=== PATIENT | male | born 1960 | race Caucasian/White ===

== ENCOUNTER → 2023-07-02 | Outpatient (CLI) | payer BC ==
[~2023-07-02] MED LIST: ASPI-556 PO; ATOR40TA71 PO; ERGO500014 PO; GABA-531 PO; GEMF600T89 PO; LEVO100T4 PO; LIRA0.6P2 SQ; LISI1TAB51 PO; PIOG30TA70 PO; SITA1TAB6 PO; TRAM50TA4 PO
[2023-07-02 16:41] LABS: ALBUMIN 3.8 g/dL (3.5-5.0); BILIRUBIN,TOTAL 0.2 mg/dL (0.2-1.0); POTASSIUM 4.4 mmol/L (3.5-5.1); TOTAL PROTEIN, SERUM 7.6 g/dL (6.0-8.3)
== END | disposition home or self-care (01) ==
LOC: LAB 15:53
PROVIDERS: ATTEND Student in an Organized Health Care Education/Training Program
DX: E78.5 Hyperlipidemia, unspecified (principal)
CPT/HCPCS: 36415; 80053

== ENCOUNTER → 2023-07-11 | Outpatient (CLI) | payer BC ==
[~2023-07-11] MED LIST changes: +IOHEXOL 350 MG/ML 100ML INFUS..BTL IV ONE; +METOPROLOL TARTRATE 1 MG/ML 5ML VIAL IV ONE
== END | disposition home or self-care (01) ==
LOC: RAH 07:44
PROVIDERS: ATTEND Student in an Organized Health Care Education/Training Program
DX: R07.9 Chest pain, unspecified (principal)
CPT/HCPCS: 75574; J3490; Q9967

== ENCOUNTER → 2023-07-17 | Outpatient (CLI) | payer BC ==
[~2023-07-17] MED LIST changes: -IOHEXOL 350 MG/ML 100ML INFUS..BTL IV ONE; -METOPROLOL TARTRATE 1 MG/ML 5ML VIAL IV ONE
== END | disposition home or self-care (01) ==
LOC: SHCH 12:15
PROVIDERS: ATTEND Student in an Organized Health Care Education/Training Program
DX: I35.8 Other nonrheumatic aortic valve disorders (principal); I11.9 Hypertensive heart disease without heart failure; E11.9 Type 2 diabetes mellitus without complications; E78.5 Hyperlipidemia, unspecified; R07.9 Chest pain, unspecified
CPT/HCPCS: 93306

== ENCOUNTER 2023-08-07 08:50 | Inpatient (IN) | payer BC ==
[2023-08-05 15:00] LABS: BASOPHILS # (AUTO) 0.07 K/uL (0.00-0.20); BASOPHILS % (AUTO) 0.5 % (0.0-5.0); EOSINOPHILS # (AUTO) 0.29 K/uL (0.00-0.70); HEMATOCRIT 43.5 % (42-54); IMMATURE GRANULOCYTE ABSOLUTE 0.05 K/uL (0-1); LYMPHOCYTES # (AUTO) 2.5 K/uL (1.0-4.8); MEAN CORPUSCULAR HGB CONC 33.6 g/dL (32.0-36.0); MEAN CORPUSCULAR VOLUME 92.4 fL (79-99); MONOCYTES % (AUTO) 6.9 % (3.0-13.0); NEUTROPHILS # (AUTO) 10.6 K/uL (1.8-7.7); NEUTROPHILS % (AUTO) 73.3 % (40.0-77.0); PLATELET COUNT (AUTO) 393 K/uL (130-400); RED BLOOD CELL COUNT(AUTO) 4.71 MIL/uL (4.50-6.20); RED CELL DISTRIBUTION WIDTH 12.4 % (11.0-15.5); WHITE BLOOD COUNT (AUTO) 14.5 K/uL (4.8-10.8)
[2023-08-05 15:13] LABS: CREATININE 0.9 mg/dL (0.5-1.3); INR <= 0.93 (0.85-1.15); POTASSIUM 4.2 mmol/L (3.5-5.1); PROTHROMBIN TIME 10.5 SEC (9.6-11.6)
[2023-08-05 15:14] LABS: PARTIAL THROMBOPLASTIN TIME 28.3 SEC (26.3-35.5)
[2023-08-05 15:22] LABS: APPEARANCE,URINE CLEAR (CLEAR); BILIRUBIN,URINE NEGATIVE (NEGATIVE); COLOR,URINE LIGHT-YELLOW (YELLOW); GLUCOSE, URINE (UA) 500 mg/dL (NEGATIVE); KETONES,URINE NEGATIVE (NEGATIVE); LEUKOCYTE ESTERASE ,URINE NEGATIVE Leu/uL (NEGATIVE); NITRATE,URINE NEGATIVE (NEGATIVE); OCCULT BLOOD,URINE NEGATIVE (NEGATIVE); PROTEIN,URINE NEGATIVE (NEGATIVE); UROBILINOGEN,URINE 0.2 mg/dL (0.2-1.0)
[2023-08-05 15:26] LABS: B-TYPE NATRIURETIC PEPTIDE 62 pg/mL (0-100)
[2023-08-05 15:27] LABS: ADD UA MICROSCOPIC YES
[2023-08-05 15:39] LABS: BACTERIA,URINE None Seen /HPF (None Seen); RBC,URINE None Seen /HPF (0-1); SQUAMOUS EPITHELIAL CELL,UR Rare /HPF (0-2); WBC,URINE 0-1 /HPF (0-1)
[2023-08-05 15:53] VITALS: BP 151/79; PULSE 83; RESP 18
[2023-08-07] VITALS (13 sets, daily range): BP systolic 102–168; BP diastolic 66–94; PULSE 67–82; RESP 14–20
[~2023-08-07] VITALS: Ht 177.8 cm; Wt 103.9 kg
[~2023-08-07 08:50] MED LIST changes: +DULA0.75 SQ; -ERGO500014 PO; -GABA-531 PO; -GEMF600T89 PO; +INSU100I24 SQ; -LIRA0.6P2 SQ; -LISI1TAB51 PO; +LISI20TA24 PO; +METF-446 PO; +METO-408 PO; -PIOG30TA70 PO; -SITA1TAB6 PO; -TRAM50TA4 PO
[2023-08-07] MEDS: 0.9%NACL 1000ML 1,000 ML IV ONE (10:35)
[2023-08-07] MEDS ORDERED: HEPARIN 10,000 UNIT/10ML (1,000 UNIT/ML) VIAL ONE ×2 (10:46→11:56)
[2023-08-07] MEDS ORDERED: LIDOCAINE HCL 400MG/20ML VIAL ONE (10:46)
[2023-08-07] MEDS ORDERED: VERAPAMIL HCL 2.5 MG/ML VIAL ONE (10:46)
[2023-08-07] MEDS ORDERED: IOHEXOL 350 MG/ML 100ML INFUS..BTL IV ONE (10:46)
[2023-08-07] MEDS ORDERED: NITROGLYCERIN 50MG VIAL ONE (10:47)
[2023-08-07] MEDS ORDERED: MIDAZOLAM HCL 1 MG/ML 2ML VIAL ONE ×2 (11:10→11:19)
[2023-08-07] MEDS ORDERED: FENTANYL CITRATE PF 50 MCG/1 ML 2ML VIAL ONE ×2 (11:10→11:38)
[2023-08-07] MEDS ORDERED: LABETALOL 20MG SYG IV ONE (11:31)
[2023-08-07] MEDS ORDERED: HYDRALAZINE 20MG/ML VIAL ONE (11:34)
[2023-08-07] MEDS ORDERED: MORPHINE 4 MG SYG ONE (11:51)
[2023-08-07] MEDS ORDERED: HYDRALAZINE 20MG/ML VIAL IV PRN (12:30)
[2023-08-07] MEDS: 0.9%NACL 1000ML 1,000 ML IV SCH (12:30)
[2023-08-07] MEDS ORDERED: DEXTROSE 50%-WATER 50 ML DISP.SYRIN IV PRN (12:30)
[2023-08-07] MEDS ORDERED: GLUCAGON 1MG KIT 1 MG ML IM PRN (12:30)
[2023-08-07 17:03] LABS: ABG BASE EXCESS -2.2 mmol/L (-2.0-3.0); ABG HCO3 20.5 mmol/L (21.0-28.0); ABG OXYGEN SATURATION 94.9 % (95.0-99.0); ABG PCO2 30 mmHg (35-48); ABG PH 7.454 (7.35-7.450); PO2, ARTERIAL BG 69.1 mmHg (83.0-108.0); VENT MODE, BG RA (ROOM AIR)
[2023-08-07] MEDS: INSULIN HUMULIN R 100 UNIT/ML 3ML SQ SCH ×2 (17:29→21:43)
[2023-08-07] MEDS: INSULIN HUMULIN R 100 UNIT/ML 3ML ONE (17:57)
[2023-08-07] MEDS: ATORVASTATIN 40 MG TABLET PO SCH (21:39)
[2023-08-07] MEDS: METOPROLOL SUCCINATE 25 MG TAB.SR.24H PO SCH (21:39)
[2023-08-07] MEDS: INSULIN GLARGINE 100 UNITS/ML 10 ML VIAL SQ SCH (21:42)
[2023-08-08] VITALS (8 sets, daily range): BP systolic 149–165; BP diastolic 69–90; PULSE 62–79; RESP 20–22; O2SAT 97–99
[2023-08-08 01:27] LABS: HEMATOCRIT 38.7 % (42-54); MEAN CORPUSCULAR HEMOGLOBIN 30.9 pg (27.0-33.0); MEAN CORPUSCULAR HGB CONC 34.4 g/dL (32.0-36.0); RED BLOOD CELL COUNT(AUTO) 4.3 MIL/uL (4.50-6.20); RED CELL DISTRIBUTION WIDTH 12.7 % (11.0-15.5); WHITE BLOOD COUNT (AUTO) 12.7 K/uL (4.8-10.8)
[2023-08-08 01:38] LABS: CREATININE 0.9 mg/dL (0.5-1.3); POTASSIUM 4.2 mmol/L (3.5-5.1)
[2023-08-08 01:40] LABS: INR <= 0.93 (0.85-1.15); PROTHROMBIN TIME 10.8 SEC (9.6-11.6)
[2023-08-08 01:42] LABS: ALBUMIN 3.5 g/dL (3.5-5.0); BILIRUBIN,TOTAL 0.3 mg/dL (0.2-1.0); PARTIAL THROMBOPLASTIN TIME 28.1 SEC (26.3-35.5); TOTAL PROTEIN, SERUM 7.1 g/dL (6.0-8.3)
[2023-08-08 01:51] LABS: HEMOGLOBIN A1C 9.3 % (4.0-6.0)
[2023-08-08] MEDS: LEVOTHYROXINE 100 MCG TABLET PO SCH (06:32)
[2023-08-08] MEDS: METFORMIN HCL 500 MG TABLET PO SCH (08:00)
[2023-08-08] MEDS: ENOXAPARIN SODIUM 40 MG/0.4 ML SYRINGE SQ SCH ×2 (08:54→08:55)
[2023-08-08] MEDS: FAMOTIDINE 20MG TAB PO SCH (08:54)
[2023-08-08] MEDS: LISINOPRIL 20 MG TABLET PO SCH (08:55)
[2023-08-08] MEDS: ASPIRIN 81 MG EC TAB PO SCH (08:55)
[2023-08-08 13:51] LABS: AMPHET/METH SCREEN,URINE NEGATIVE (NEGATIVE); BARBITURATE SCREEN, URINE NEGATIVE (NEGATIVE); BENZODIAZEPINES SCREEN,URINE POSITIVE (NEGATIVE); CANNABINOID SCREEN,URINE NEGATIVE (NEGATIVE); COCAINE SCREEN,URINE NEGATIVE (NEGATIVE); OPIATE SCREEN,URINE NEGATIVE (NEGATIVE); PHENCYCLIDINE SCREEN,URINE NEGATIVE (NEGATIVE)
[2023-08-09] VITALS (42 sets, daily range): BP systolic 89–245; BP diastolic 48–114; PULSE 61–113; RESP 10–22; TEMP 97.8–98.4; O2SAT 91–100
[2023-08-09 04:05] LABS: HEMATOCRIT 39.1 % (42-54); MEAN CORPUSCULAR HEMOGLOBIN 30.9 pg (27.0-33.0); MEAN CORPUSCULAR HGB CONC 33.2 g/dL (32.0-36.0); MEAN CORPUSCULAR VOLUME 92.9 fL (79-99); RED BLOOD CELL COUNT(AUTO) 4.21 MIL/uL (4.50-6.20); RED CELL DISTRIBUTION WIDTH 12.6 % (11.0-15.5); WHITE BLOOD COUNT (AUTO) 11.2 K/uL (4.8-10.8)
[2023-08-09 04:26] LABS: ALBUMIN 3.2 g/dL (3.5-5.0); BILIRUBIN,TOTAL 0.3 mg/dL (0.2-1.0); CREATININE 0.8 mg/dL (0.5-1.3); POTASSIUM 4.2 mmol/L (3.5-5.1); TOTAL PROTEIN, SERUM 6.7 g/dL (6.0-8.3)
[2023-08-09] MEDS: CEFAZOLIN SODIUM 2 GM VIAL IVPB SCH ×2 (07:30→22:00)
[2023-08-09] MEDS ORDERED: AMINOCAPROIC ACID 5,000MG VIAL 15,000 MG in 0.9% NACL 500ML IV.SOLN 420 ML IV PRN (08:30)
[2023-08-09] MEDS ORDERED: NOREPINEPHRIN 8MG/250ML NS 250 ML IV PRN (08:30)
[2023-08-09] MEDS ORDERED: EPINEPHRINE PF 1MG (1:1,000) 10 MG in 0.9% NACL 250ML 240 ML IV PRN ×2 (08:30→14:00)
[2023-08-09] MEDS: CEFAZOLIN SODIUM 2 GM VIAL ONE (10:33)
[2023-08-09] MEDS: 0.9%NACL 1000ML 1,000 ML IV ONE (10:33)
[2023-08-09] MEDS ORDERED: PROPOFOL 10 MG/ML 20ML VIAL IV ONE (12:01)
[2023-08-09] MEDS ORDERED: MIDAZOLAM HCL 1 MG/ML 2ML VIAL ONE ×2 (12:01→14:47)
[2023-08-09] MEDS ORDERED: ROCURONIUM BROMIDE 10MG/1ML 5ML VL ONE ×4 (12:01→15:01)
[2023-08-09] MEDS ORDERED: LIDOCAINE PF 100MG/5ML (2%) SYRINGE 5ML ONE (12:01)
[2023-08-09] MEDS ORDERED: FENTANYL CITRATE PF 50 MCG/1 ML 20ML VIAL IJ ONE (12:01)
[2023-08-09 12:40] LABS: ABG BASE EXCESS -4.2 mmol/L (-2.0-3.0); ABG HCO3 22.4 mmol/L (21.0-28.0); ABG OXYGEN SATURATION 99.5 % (95.0-99.0); ABG PCO2 47 mmHg (35-48); ABG PH 7.298 (7.35-7.450); CARBON MONOXIDE 0.2; DEVICE COMMENT 1; HHb 0.5; PO2, ARTERIAL BG 300.4 mmHg (83.0-108.0)
[2023-08-09] MEDS ORDERED: HEPARIN 10,000 UNIT/10ML (1,000 UNIT/ML) VIAL ONE ×3 (13:55→18:45)
[2023-08-09] MEDS ORDERED: 0.9%NACL 10ML VIAL IVP PRN (14:00)
[2023-08-09] MEDS ORDERED: NITROGLYCERIN 50MG/D5W 250ML 250 BOT IV SCH (14:00)
[2023-08-09] MEDS ORDERED: AMINOCAPROIC ACID 5,000MG VIAL 15,000 MG in 0.9% NACL 250ML 250 ML IV SCH (14:00)
[2023-08-09] MEDS ORDERED: GLUCAGON 1MG KIT 1 MG ML IM PRN (14:00)
[2023-08-09] MEDS ORDERED: DEXTROSE 50%-WATER 50 ML DISP.SYRIN IV PRN (14:00)
[2023-08-09] MEDS ORDERED: MAGNESIUM HYDROXIDE 30 ML/UDCUP PO PRN (14:00)
[2023-08-09] MEDS ORDERED: ACETAMINOPHEN 325 MG TAB PO PRN ×2 (14:00)
[2023-08-09] MEDS ORDERED: 0.9% NACL 500ML IV.SOLN 500 ML IV SCH (14:00)
[2023-08-09] MEDS ORDERED: ACETAMINOPHEN 650 MG SUPPOSITORY RC PRN (14:00)
[2023-08-09] MEDS ORDERED: NOREPINEPHRINE BITARTRATE 8 MG in DEXTROSE 5%-WATER 250 ML IV PRN (14:00)
[2023-08-09] MEDS ORDERED: POTASSIUM PHOS 15 mMOL+NS250ML 250 ML IV PRN (14:00)
[2023-08-09] MEDS ORDERED: SODIUM BICARB 50MEQ 50ML VIAL 150 ML ONE (14:09)
[2023-08-09 14:10] LABS: ABG BASE EXCESS -8.8 mmol/L (-2.0-3.0); ABG HCO3 18.6 mmol/L (21.0-28.0); ABG OXYGEN SATURATION 99.3 % (95.0-99.0); ABG PCO2 46 mmHg (35-48); ABG PH 7.226 (7.35-7.450); CARBON MONOXIDE 0.3; DEVICE COMMENT 2; HHb 0.7; PO2, ARTERIAL BG 311.1 mmHg (83.0-108.0)
[2023-08-09] MEDS: CEFAZOLIN SODIUM 1 GM VIAL ONE (14:17)
[2023-08-09] MEDS: PAPAVERINE HCL 30 MG/ML 2ML VIAL ONE (14:18)
[2023-08-09] MEDS ORDERED: VASOPRESSIN 20 UNITS/ML 1ML VIAL ONE (14:27)
[2023-08-09 14:39] LABS: ABG BASE EXCESS -0.9 mmol/L (-2.0-3.0); ABG HCO3 25.1 mmol/L (21.0-28.0); ABG OXYGEN SATURATION 98.8 % (95.0-99.0); ABG PCO2 47 mmHg (35-48); ABG PH 7.342 (7.35-7.450); CARBON MONOXIDE 0.3; DEVICE COMMENT 3; HHb 1.2; PO2, ARTERIAL BG 208.5 mmHg (83.0-108.0)
[2023-08-09] MEDS ORDERED: KETAMINE 50MG/ML SYRINGE 50 MG/ML DISP.SYRIN ONE (14:47)
[2023-08-09 14:58] LABS: ABG BASE EXCESS -3.7 mmol/L (-2.0-3.0); ABG HCO3 22.2 mmol/L (21.0-28.0); ABG OXYGEN SATURATION 92.6 % (95.0-99.0); ABG PCO2 44 mmHg (35-48); ABG PH 7.325 (7.35-7.450); CARBON MONOXIDE 0.3; DEVICE COMMENT 3; HHb 7.4; PO2, ARTERIAL BG 72.7 mmHg (83.0-108.0)
[2023-08-09 15:34] LABS: ABG BASE EXCESS -2.5 mmol/L (-2.0-3.0); ABG HCO3 25.3 mmol/L (21.0-28.0); ABG OXYGEN SATURATION 90.9 % (95.0-99.0); ABG PCO2 58 mmHg (35-48); ABG PH 7.258 (7.35-7.450); CARBON MONOXIDE 0.4; HHb 9.1; PO2, ARTERIAL BG 72.2 mmHg (83.0-108.0); VENT MODE, BG SIMV PS 10 (ROOM AIR)
[2023-08-09 15:53] LABS: HEMATOCRIT 35.1 % (42-54); MEAN CORPUSCULAR HEMOGLOBIN 31.3 pg (27.0-33.0); MEAN CORPUSCULAR HGB CONC 33.3 g/dL (32.0-36.0); MEAN CORPUSCULAR VOLUME 93.9 fL (79-99); PLATELET COUNT (AUTO) 339 K/uL (130-400); RED BLOOD CELL COUNT(AUTO) 3.74 MIL/uL (4.50-6.20); RED CELL DISTRIBUTION WIDTH 12.5 % (11.0-15.5)
[2023-08-09 16:02] LABS: WHITE BLOOD COUNT (AUTO) 36.8 K/uL (4.8-10.8)
[2023-08-09 16:05] LABS: INR 1.01 (0.85-1.15); PROTHROMBIN TIME 11.9 SEC (9.6-11.6)
[2023-08-09 16:07] LABS: CREATININE 0.6 mg/dL (0.5-1.3); MAGNESIUM 1.6 mg/dL (1.80-2.40); PARTIAL THROMBOPLASTIN TIME 25.6 SEC (26.3-35.5); PHOSPHORUS 5.4 mg/dL (2.5-4.9); POTASSIUM 3.6 mmol/L (3.5-5.1)
[2023-08-09 16:22] LABS: ABG BASE EXCESS -1.1 mmol/L (-2.0-3.0); ABG HCO3 24.6 mmol/L (21.0-28.0); ABG OXYGEN SATURATION 97.1 % (95.0-99.0); ABG PCO2 45 mmHg (35-48); ABG PH 7.357 (7.35-7.450); CARBON MONOXIDE 0.6; HHb 2.9; PO2, ARTERIAL BG 102.7 mmHg (83.0-108.0); VENT MODE, BG SIMV (ROOM AIR)
[2023-08-09] MEDS ORDERED: NICARDIPINE 100 MG in 0.9%NACL 100ML IV SCH (17:00)
[2023-08-09] MEDS ORDERED: IOHEXOL 350 MG/ML 100ML INFUS..BTL IV ONE ×2 (17:01→18:22)
[2023-08-09] MEDS ORDERED: LIDOCAINE HCL 400MG/20ML VIAL ONE (17:01)
[2023-08-09] MEDS ORDERED: IOHEXOL-350 50ML VIAL IV ONE (17:01)
[2023-08-09] MEDS ORDERED: IOHEXOL-350 75 ML VIAL IV ONE (17:01)
[2023-08-09] MEDS ORDERED: NITROGLYCERIN 50MG VIAL ONE (17:02)
[2023-08-09] MEDS ORDERED: ATROPINE 1MG SYG IVP ONE (17:09)
[2023-08-09] MEDS ORDERED: DOPAMINE HCL 400 MG/D5%-WATER 0 ML IV ONE (17:10)
[2023-08-09 17:15] LABS: BAND NEUTROPHILS % (MANUAL) 4 % (0-2); EOSINOPHILS % (MANUAL) 1 % (1-6); LYMPHOCYTES % (MANUAL) 6 % (22-44); MAN.DIFF COMMENT-IMPRESSION MANUAL DIFFERENTIAL; MONOCYTES % (MANUAL) 5 % (2-9); SEGMENTED NEUTROPHILS % 84 % (40-70); TOTAL CELLS COUNTED 100
[2023-08-09 17:16] LABS: PLATELET MORPHOLOGY COMMENT ADEQUATE; WBC MORPHOLOGY HYPERSEGMENT NEUT 1+
[2023-08-09] MEDS: IPRATROPIUM 0.5 MG/2.5 ML INH IH SCH (18:00)
[2023-08-09] MEDS: MORPHINE 4 MG SYG IV PRN (18:06)
[2023-08-09] MEDS: POTASSIUM CHLORIDE 20MEQ/100ML 100 ML IV PRN (18:07)
[2023-08-09] MEDS: ALBUMIN (HUMAN) 5% 250 ML IV PRN (18:08)
[2023-08-09] MEDS: ASPIRIN 81MG CHEW TAB NG ONE (18:08)
[2023-08-09] MEDS: 0.9%NACL 1000ML 1,000 ML IV SCH (18:09)
[2023-08-09] MEDS: DEXMEDETOMIDINE 400MCG/NS100ML IV ONE (18:10)
[2023-08-09] MEDS: ONDANSETRON 4MG INJ IV PRN (18:11)
[2023-08-09] MEDS: SODIUM BICARB 50MEQ 50ML VIAL IV PRN (18:11)
[2023-08-09] MEDS ORDERED: DEXMEDETOMIDINE HCL 400 MCG in 0.9%NACL 100ML 100 ML IV SCH (18:30)
[2023-08-09] MEDS ORDERED: HEPARIN 25,000 UNITS/250ML D5W 250 ML IV ONE (19:14)
[2023-08-09] MEDS ORDERED: ASPIRIN 81MG CHEW TAB ONE (19:27)
[2023-08-09] MEDS ORDERED: CLOPIDOGREL 300MG TAB ONE (19:27)
[2023-08-09] MEDS ORDERED: NITROGLYCERIN 50MG/D5W 250ML 1 BOT IV PRN (20:00)
[2023-08-09] MEDS ORDERED: ONDANSETRON 4MG INJ IVP PRN (20:00)
[2023-08-09] MEDS ORDERED: ACETAMINOPHEN WITH CODEINE 1 TAB TAB PO PRN ×2 (20:00)
[2023-08-09 20:08] LABS: ABG BASE EXCESS -1.7 mmol/L (-2.0-3.0); ABG OXYGEN SATURATION 98.9 % (95.0-99.0); ABG PCO2 39 mmHg (35-48); ABG PH 7.387 (7.35-7.450); CARBON MONOXIDE 0.3; HHb 1.1; PO2, ARTERIAL BG 319.3 mmHg (83.0-108.0); VENT MODE, BG SIMV PS10 (ROOM AIR)
[2023-08-09 20:28] LABS: BASOPHILS # (AUTO) 0.04 K/uL (0.00-0.20); BASOPHILS % (AUTO) 0.2 % (0.0-5.0); EOSINOPHILS # (AUTO) 0.01 K/uL (0.00-0.70); HEMATOCRIT 33.6 % (42-54); IMMATURE GRANULOCYTE ABSOLUTE 0.18 K/uL (0-1); LYMPHOCYTES # (AUTO) 0.7 K/uL (1.0-4.8); LYMPHOCYTES % (AUTO) 2.8 % (21.0-51.0); MEAN CORPUSCULAR VOLUME 93.9 fL (79-99); MONOCYTES # (AUTO) 1.7 K/uL (0.1-1.0); MONOCYTES % (AUTO) 6.6 % (3.0-13.0); NEUTROPHILS # (AUTO) 23.7 K/uL (1.8-7.7); NEUTROPHILS % (AUTO) 89.7 % (40.0-77.0); PLATELET COUNT (AUTO) 356 K/uL (130-400); RED BLOOD CELL COUNT(AUTO) 3.58 MIL/uL (4.50-6.20); RED CELL DISTRIBUTION WIDTH 12.5 % (11.0-15.5); WHITE BLOOD COUNT (AUTO) 26.4 K/uL (4.8-10.8)
[2023-08-09] MEDS: HEPARIN 25,000 UNITS/250ML D5W 250 ML IV SCH (21:00)
[2023-08-09] MEDS ORDERED: HEPARIN 5,000 UNIT VIAL IV PRN (21:00)
[2023-08-09 21:37] LABS: ABG BASE EXCESS 0.5 mmol/L (-2.0-3.0); ABG HCO3 24.8 mmol/L (21.0-28.0); ABG OXYGEN SATURATION 99.1 % (95.0-99.0); ABG PCO2 39 mmHg (35-48); ABG PH 7.425 (7.35-7.450); CARBON MONOXIDE 0.3; HHb 0.9; PO2, ARTERIAL BG 431.5 mmHg (83.0-108.0)
[2023-08-09] MEDS: DOCUSATE SODIUM 100 MG CAP PO ONE (21:48)
[2023-08-09] MEDS: MAGNESIUM 2GM PREMIX 50ML 50 ML IV PRN (21:52)
[2023-08-09] MEDS: FAMOTIDINE 20MG VIAL IV SCH (22:16)
[2023-08-09 22:31] LABS: ABG OXYGEN SATURATION 98.6 % (95.0-99.0); ABG PCO2 37 mmHg (35-48); ABG PH 7.435 (7.35-7.450); CARBON MONOXIDE 0.3; HHb 1.4; PO2, ARTERIAL BG 178.9 mmHg (83.0-108.0); VENT MODE, BG SIMV PS10 (ROOM AIR)
[2023-08-09 23:35] LABS: ABG BASE EXCESS 1.4 mmol/L (-2.0-3.0); ABG HCO3 25.3 mmol/L (21.0-28.0); ABG OXYGEN SATURATION 98.1 % (95.0-99.0); ABG PCO2 37 mmHg (35-48); CARBON MONOXIDE 0.3; HHb 1.9; PO2, ARTERIAL BG 147.4 mmHg (83.0-108.0)
[2023-08-09] MEDS: CALCIUM GLUC 1GM 1 GM in 0.9%NACL 50ML 50 ML IV PRN (23:49)
[2023-08-10] VITALS (93 sets, daily range): BP systolic 79–173; BP diastolic 36–79; PULSE 75–98; RESP 10–30; TEMP 98–98.9; O2SAT 91–100
[2023-08-10 00:32] LABS: ABG HCO3 25.6 mmol/L (21.0-28.0); ABG OXYGEN SATURATION 96.6 % (95.0-99.0); ABG PCO2 41 mmHg (35-48); ABG PH 7.413 (7.35-7.450); CARBON MONOXIDE 0.3; HHb 3.4; PO2, ARTERIAL BG 96.8 mmHg (83.0-108.0)
[2023-08-10 01:43] LABS: ABG BASE EXCESS 1.2 mmol/L (-2.0-3.0); ABG HCO3 25.9 mmol/L (21.0-28.0); ABG OXYGEN SATURATION 96.8 % (95.0-99.0); ABG PCO2 42 mmHg (35-48); ABG PH 7.411 (7.35-7.450); CARBON MONOXIDE 0.3; HHb 3.2; PO2, ARTERIAL BG 98.5 mmHg (83.0-108.0)
[2023-08-10] MEDS: PROPOFOL 1000 MG/100 ML 100 ML IV PRN (01:52)
[2023-08-10 02:36] LABS: HEMATOCRIT 26.9 % (42-54); MEAN CORPUSCULAR HEMOGLOBIN 31.4 pg (27.0-33.0); MEAN CORPUSCULAR HGB CONC 34.2 g/dL (32.0-36.0); MEAN CORPUSCULAR VOLUME 91.8 fL (79-99); RED BLOOD CELL COUNT(AUTO) 2.93 MIL/uL (4.50-6.20); RED CELL DISTRIBUTION WIDTH 12.7 % (11.0-15.5); WHITE BLOOD COUNT (AUTO) 19.9 K/uL (4.8-10.8)
[2023-08-10 02:40] LABS: ABG BASE EXCESS 0.8 mmol/L (-2.0-3.0); ABG HCO3 25.1 mmol/L (21.0-28.0); ABG OXYGEN SATURATION 96.8 % (95.0-99.0); ABG PCO2 39 mmHg (35-48); ABG PH 7.424 (7.35-7.450); CARBON MONOXIDE 0.3; HHb 3.2; PO2, ARTERIAL BG 99.3 mmHg (83.0-108.0)
[2023-08-10 02:47] LABS: INR 0.98 (0.85-1.15); PROTHROMBIN TIME 11.6 SEC (9.6-11.6)
[2023-08-10 02:49] LABS: PARTIAL THROMBOPLASTIN TIME 81.8 SEC (26.3-35.5)
[2023-08-10] MEDS: MORPHINE 2 MG SYG IV PRN (02:51)
[2023-08-10 02:56] LABS: CREATININE 0.6 mg/dL (0.5-1.3); PHOSPHORUS 3.5 mg/dL (2.5-4.9); POTASSIUM 4.2 mmol/L (3.5-5.1)
[2023-08-10] MEDS: AMIODARONE 150MG VIAL ONE (03:26)
[2023-08-10] MEDS ORDERED: AMIODARONE 900MG VIAL 360 MG in DEXTROSE 5%-WATER 200 ML IV SCH (03:30)
[2023-08-10 03:31] LABS: ABG BASE EXCESS 0.3 mmol/L (-2.0-3.0); ABG HCO3 24.7 mmol/L (21.0-28.0); ABG OXYGEN SATURATION 96.9 % (95.0-99.0); ABG PCO2 39 mmHg (35-48); ABG PH 7.421 (7.35-7.450); CARBON MONOXIDE 0.3; HHb 3.1; PO2, ARTERIAL BG 100.4 mmHg (83.0-108.0); VENT MODE, BG SIMV PS10 (ROOM AIR)
[2023-08-10] MEDS ORDERED: VASOPRESSIN 40 UNITS in 0.9%NACL 50ML 40 ML IV SCH (04:30)
[2023-08-10 04:41] LABS: ABG HCO3 24.4 mmol/L (21.0-28.0); ABG OXYGEN SATURATION 97.2 % (95.0-99.0); ABG PCO2 39 mmHg (35-48); ABG PH 7.417 (7.35-7.450); CARBON MONOXIDE 0.3; HHb 2.8; PO2, ARTERIAL BG 107.3 mmHg (83.0-108.0)
[2023-08-10] MEDS: VASOPRESSIN 20 UNITS/ML 1ML VIAL ONE ×3 (05:02→05:03)
[2023-08-10 05:37] LABS: ABG BASE EXCESS 0.9 mmol/L (-2.0-3.0); ABG HCO3 25.4 mmol/L (21.0-28.0); ABG PCO2 40 mmHg (35-48); CARBON MONOXIDE 0.3; PO2, ARTERIAL BG 101.4 mmHg (83.0-108.0)
[2023-08-10] MEDS: NOREPINEPHRIN 8MG/250ML NS 250 ML IV ONE (05:40)
[2023-08-10 06:46] LABS: ABG OXYGEN SATURATION 96.6 % (95.0-99.0); ABG PCO2 36 mmHg (35-48); ABG PH 7.429 (7.35-7.450); CARBON MONOXIDE 0.3; DEVICE COMMENT RN SERGIO; HHb 3.4; PO2, ARTERIAL BG 95.1 mmHg (83.0-108.0); VENT MODE, BG SIMV PS10 (ROOM AIR)
[2023-08-10] MEDS: ASPIRIN 81MG CHEW TAB PO SCH (07:44)
[2023-08-10] MEDS: PANTOPRAZOLE 40 MG TAB DR PO SCH (07:44)
[2023-08-10] MEDS: CLOPIDOGREL 75MG TAB PO SCH (07:44)
[2023-08-10] MEDS: FUROSEMIDE 20MG VIAL IV SCH (07:45)
[2023-08-10 07:59] LABS: ABG BASE EXCESS -0.3 mmol/L (-2.0-3.0); ABG HCO3 23.2 mmol/L (21.0-28.0); ABG OXYGEN SATURATION 96.6 % (95.0-99.0); ABG PCO2 34 mmHg (35-48); ABG PH 7.457 (7.35-7.450); CARBON MONOXIDE 0.3; DEVICE COMMENT RN SERGIO; HHb 3.4; PO2, ARTERIAL BG 93.5 mmHg (83.0-108.0); VENT MODE, BG SIMV PS10 (ROOM AIR)
[2023-08-10] MEDS: AMIODARONE 900MG VIAL 540 MG in DEXTROSE 5%-WATER 300 ML IV SCH (09:27)
[2023-08-10 09:43] LABS: ABG BASE EXCESS -0.4 mmol/L (-2.0-3.0); ABG HCO3 23.1 mmol/L (21.0-28.0); ABG OXYGEN SATURATION 96.2 % (95.0-99.0); ABG PCO2 33 mmHg (35-48); ABG PH 7.457 (7.35-7.450); CARBON MONOXIDE 0.3; DEVICE COMMENT RN SERGIO; HHb 3.8; PO2, ARTERIAL BG 82.8 mmHg (83.0-108.0); VENT MODE, BG CAFM (ROOM AIR)
[2023-08-10] MEDS: TRAMADOL HCL 50 MG TABLET PO PRN (09:46)
[2023-08-10 12:55] LABS: ALBUMIN 2.5 g/dL (3.5-5.0); BILIRUBIN,DIRECT 0.1 mg/dL (0.0-0.3); BILIRUBIN,TOTAL 0.2 mg/dL (0.2-1.0); TOTAL PROTEIN, SERUM 5.3 g/dL (6.0-8.3)
[2023-08-10] MEDS: INSULIN REGULAR, HUMAN 3ML 100 UNIT in 0.9%NACL 100ML 99 ML IV SCH (18:21)
[2023-08-10] MEDS: CALCIUM GLUC 1GM/10ML VIAL ONE (18:21)
[2023-08-11] VITALS (97 sets, daily range): BP systolic 78–193; BP diastolic 38–81; PULSE 66–100; RESP 7–32; TEMP 97.8–99.4; O2SAT 90–99
[2023-08-11 03:39] LABS: HEMATOCRIT 21.7 % (42-54); MEAN CORPUSCULAR HEMOGLOBIN 31.3 pg (27.0-33.0); MEAN CORPUSCULAR HGB CONC 33.2 g/dL (32.0-36.0); MEAN CORPUSCULAR VOLUME 94.3 fL (79-99); RED BLOOD CELL COUNT(AUTO) 2.3 MIL/uL (4.50-6.20); RED CELL DISTRIBUTION WIDTH 13.3 % (11.0-15.5)
[2023-08-11 03:48] LABS: CREATININE 0.9 mg/dL (0.5-1.3)
[2023-08-11] MEDS ORDERED: GLUCAGON 1MG KIT 1 MG ML IM PRN (07:00)
[2023-08-11] MEDS ORDERED: DEXTROSE 50%-WATER 50 ML DISP.SYRIN IV PRN (07:00)
[2023-08-11] MEDS: METOPROLOL TARTRATE 25 MG TAB PO SCH (07:59)
[2023-08-11] MEDS: AMIODARONE 200 MG TABLET PO SCH (07:59)
[2023-08-11] MEDS: INSULIN HUMULIN R 100 UNIT/ML 3ML SQ SCH (08:04)
[2023-08-11] MEDS: FUROSEMIDE 20MG VIAL IV SCH (11:29)
[2023-08-11 15:43] LABS: ABG BASE EXCESS -2.2 mmol/L (-2.0-3.0); ABG HCO3 20.3 mmol/L (21.0-28.0); ABG OXYGEN SATURATION 90.8 % (95.0-99.0); ABG PCO2 29 mmHg (35-48); ABG PH 7.459 (7.35-7.450); PO2, ARTERIAL BG 55.4 mmHg (83.0-108.0); VENT MODE, BG NC OXYMIZER (ROOM AIR)
[2023-08-11 17:55] LABS: BASOPHILS # (AUTO) 0.04 K/uL (0.00-0.20); BASOPHILS % (AUTO) 0.2 % (0.0-5.0); HEMATOCRIT 25.1 % (42-54); IMMATURE GRANULOCYTE ABSOLUTE 0.18 K/uL (0-1); LYMPHOCYTES # (AUTO) 1.6 K/uL (1.0-4.8); MEAN CORPUSCULAR HEMOGLOBIN 31.1 pg (27.0-33.0); MEAN CORPUSCULAR HGB CONC 33.5 g/dL (32.0-36.0); MONOCYTES # (AUTO) 2.6 K/uL (0.1-1.0); NEUTROPHILS # (AUTO) 21.6 K/uL (1.8-7.7); NEUTROPHILS % (AUTO) 83.1 % (40.0-77.0); PLATELET COUNT (AUTO) 242 K/uL (130-400); RED CELL DISTRIBUTION WIDTH 13.7 % (11.0-15.5)
[2023-08-11 18:04] LABS: INR 1.07 (0.85-1.15); PROTHROMBIN TIME 12.6 SEC (9.6-11.6)
[2023-08-11 18:05] LABS: PARTIAL THROMBOPLASTIN TIME 29.4 SEC (26.3-35.5)
[2023-08-11] MEDS: TEMAZEPAM 30 MG CAP PO PRN (20:45)
[2023-08-11] MEDS: TRAMADOL HCL 50 MG TABLET PO PRN (20:45)
[2023-08-12] VITALS (94 sets, daily range): BP systolic 66–167; BP diastolic 45–100; PULSE 63–89; RESP 10–61; TEMP 97.8–98.8; O2SAT 93–100
[2023-08-12 04:41] LABS: MEAN CORPUSCULAR HGB CONC 33.9 g/dL (32.0-36.0); MEAN CORPUSCULAR VOLUME 91.3 fL (79-99); RED BLOOD CELL COUNT(AUTO) 2.52 MIL/uL (4.50-6.20); RED CELL DISTRIBUTION WIDTH 13.8 % (11.0-15.5); WHITE BLOOD COUNT (AUTO) 23.9 K/uL (4.8-10.8)
[2023-08-12 04:53] LABS: CREATININE 1.1 mg/dL (0.5-1.3); MAGNESIUM 2.4 mg/dL (1.80-2.40); POTASSIUM 4.4 mmol/L (3.5-5.1)
[2023-08-12] MEDS: FUROSEMIDE 20 MG TABLET PO SCH (08:08)
[2023-08-12] MEDS: ENOXAPARIN SODIUM 30 MG/0.3 ML SQ SCH (08:13)
[2023-08-12] MEDS: LACTULOSE 20 GM/30 ML UDCUP PO PRN (09:08)
[2023-08-12 11:33] LABS: HEMATOCRIT 22.4 % (42-54); MEAN CORPUSCULAR HEMOGLOBIN 31.6 pg (27.0-33.0); MEAN CORPUSCULAR HGB CONC 34.8 g/dL (32.0-36.0); MEAN CORPUSCULAR VOLUME 90.7 fL (79-99); RED BLOOD CELL COUNT(AUTO) 2.47 MIL/uL (4.50-6.20); RED CELL DISTRIBUTION WIDTH 13.6 % (11.0-15.5); WHITE BLOOD COUNT (AUTO) 23.5 K/uL (4.8-10.8)
[2023-08-12] MEDS: ACETAMINOPHEN 325 MG TAB PO PRN (15:52)
[2023-08-12 18:10] LABS: HEMATOCRIT 25.5 % (42-54)
[2023-08-12] MEDS: ATORVASTATIN 40 MG TABLET PO SCH (20:32)
[2023-08-13] VITALS (33 sets, daily range): BP systolic 91–166; BP diastolic 48–98; PULSE 64–81; RESP 11–42; TEMP 98.1–98.9; O2SAT 92–98
[2023-08-13 04:34] LABS: HEMATOCRIT 25.2 % (42-54); MEAN CORPUSCULAR HEMOGLOBIN 30.9 pg (27.0-33.0); MEAN CORPUSCULAR HGB CONC 33.7 g/dL (32.0-36.0); MEAN CORPUSCULAR VOLUME 91.6 fL (79-99); NUCLEATED RED BLOOD CELLS 0.1 % (0.0-0.19); RED BLOOD CELL COUNT(AUTO) 2.75 MIL/uL (4.50-6.20); RED CELL DISTRIBUTION WIDTH 14.4 % (11.0-15.5); WHITE BLOOD COUNT (AUTO) 18.5 K/uL (4.8-10.8)
[2023-08-13 04:45] LABS: CREATININE 0.8 mg/dL (0.5-1.3); POTASSIUM 3.6 mmol/L (3.5-5.1)
[2023-08-13] MEDS: ACETYLCYSTEINE 10% 100MG/ML 4ML VIAL IH SCH (11:16)
[2023-08-13] MEDS: LACTULOSE 20 GM/30 ML UDCUP PO SCH (14:24)
[2023-08-14] VITALS (55 sets, daily range): BP systolic 103–197; BP diastolic 52–104; PULSE 60–136; RESP 12–28; TEMP 97.5–98.1; O2SAT 92–99
[2023-08-14 04:54] LABS: HEMATOCRIT 26.2 % (42-54); MEAN CORPUSCULAR HEMOGLOBIN 30.3 pg (27.0-33.0); MEAN CORPUSCULAR HGB CONC 33.6 g/dL (32.0-36.0); MEAN CORPUSCULAR VOLUME 90.3 fL (79-99); NUCLEATED RED BLOOD CELLS 0.1 % (0.0-0.19); RED BLOOD CELL COUNT(AUTO) 2.9 MIL/uL (4.50-6.20); WHITE BLOOD COUNT (AUTO) 15.5 K/uL (4.8-10.8)
[2023-08-14 05:03] LABS: CREATININE 0.7 mg/dL (0.5-1.3); POTASSIUM 3.4 mmol/L (3.5-5.1)
[2023-08-14] MEDS ORDERED: AMIODARONE 900MG VIAL 450 MG in DEXTROSE 5%-WATER 250 ML IV PRN (06:30)
[2023-08-14] MEDS ORDERED: AMIODARONE 900MG VIAL 900 MG in DEXTROSE 5%-WATER 200 ML IV PRN (06:30)
[2023-08-14] MEDS ORDERED: AMIODARONE 900MG VIAL 150 MG in DEXTROSE 5%-WATER 100 ML IV PRN (06:30)
[2023-08-14] MEDS: AMIODARONE 900MG VIAL 150 MG in DEXTROSE 5%-WATER 100 ML IV SCH (06:52)
[2023-08-14] MEDS ORDERED: AMIODARONE 900MG VIAL 360 MG in DEXTROSE 5%-WATER 200 ML IV SCH (07:00)
[2023-08-14] MEDS ORDERED: LIDOCAINE PF 100MG/5ML (2%) SYRINGE 5ML ONE (07:20)
[2023-08-14] MEDS ORDERED: PHENYLEPHRINE HCL 10 MG/ML 5ML VIAL IV ONE ×2 (07:20→07:22)
[2023-08-14] MEDS ORDERED: ATROPINE 1MG SYG IVP ONE (07:20)
[2023-08-14] MEDS ORDERED: LIDOCAINE HCL 400MG/20ML VIAL ONE (07:20)
[2023-08-14] MEDS ORDERED: HEPARIN 10,000 UNIT/10ML (1,000 UNIT/ML) VIAL ONE ×3 (07:21→09:16)
[2023-08-14] MEDS ORDERED: IOHEXOL 350 MG/ML 100ML INFUS..BTL IV ONE (07:21)
[2023-08-14] MEDS ORDERED: DOPAMINE HCL 400 MG/D5%-WATER 0 ML IV ONE (07:21)
[2023-08-14] MEDS ORDERED: NITROGLYCERIN 50MG VIAL ONE ×2 (07:22→08:06)
[2023-08-14] MEDS: METOPROLOL TARTRATE 1 MG/ML 5ML VIAL IV ONE ×2 (07:25→08:13)
[2023-08-14] MEDS: LABETALOL 20MG SYG IV ONE ×2 (07:30→08:13)
[2023-08-14] MEDS: AMIODARONE 150MG VIAL 150 MG in DEXTROSE 5%-WATER 100 ML IV ONE (07:30)
[2023-08-14] MEDS ORDERED: MIDAZOLAM HCL 1 MG/ML 2ML VIAL ONE ×3 (08:11→09:28)
[2023-08-14] MEDS ORDERED: FENTANYL CITRATE PF 50 MCG/1 ML 2ML VIAL ONE (08:11)
[2023-08-14] MEDS ORDERED: METOPROLOL TARTRATE 1 MG/ML 5ML VIAL IV ONE (08:46)
[2023-08-14] MEDS: POLYETHYLENE GLYCOL 3350 17 GM POWD.PACK PO SCH (09:00)
[2023-08-14] MEDS ORDERED: CLOPIDOGREL 300MG TAB ONE (09:41)
[2023-08-14] MEDS ORDERED: ASPIRIN 81MG CHEW TAB ONE (09:41)
[2023-08-14] MEDS ORDERED: DEXTROSE 50%-WATER 50 ML DISP.SYRIN IV PRN (10:30)
[2023-08-14] MEDS ORDERED: GLUCAGON 1MG KIT 1 MG ML IM PRN (10:30)
[2023-08-14] MEDS: AMIODARONE 900MG VIAL 540 MG in DEXTROSE 5%-WATER 300 ML IV ONE (11:14)
[2023-08-14] MEDS: 0.9%NACL 1000ML 1,000 ML IV SCH (11:16)
[2023-08-14] MEDS: FENTANYL CITRATE PF 50 MCG/1 ML 2ML VIAL IVP ONE (13:16)
[2023-08-15] VITALS (28 sets, daily range): BP systolic 109–177; BP diastolic 63–88; PULSE 62–147; RESP 13–29; TEMP 98.4; O2SAT 94–99
[2023-08-15 04:43] LABS: BASOPHILS # (AUTO) 0.04 K/uL (0.00-0.20); BASOPHILS % (AUTO) 0.2 % (0.0-5.0); EOSINOPHILS # (AUTO) 0.31 K/uL (0.00-0.70); EOSINOPHILS % (AUTO) 1.8 % (0.0-8.0); HEMATOCRIT 25.4 % (42-54); IMMATURE GRANULOCYTE ABSOLUTE 0.16 K/uL (0-1); LYMPHOCYTES # (AUTO) 1.5 K/uL (1.0-4.8); LYMPHOCYTES % (AUTO) 8.9 % (21.0-51.0); MEAN CORPUSCULAR HEMOGLOBIN 30.6 pg (27.0-33.0); MEAN CORPUSCULAR HGB CONC 33.5 g/dL (32.0-36.0); MEAN CORPUSCULAR VOLUME 91.4 fL (79-99); MONOCYTES # (AUTO) 1.9 K/uL (0.1-1.0); MONOCYTES % (AUTO) 11.2 % (3.0-13.0); NEUTROPHILS # (AUTO) 12.9 K/uL (1.8-7.7); NEUTROPHILS % (AUTO) 76.9 % (40.0-77.0); PLATELET COUNT (AUTO) 311 K/uL (130-400); RED BLOOD CELL COUNT(AUTO) 2.78 MIL/uL (4.50-6.20); RED CELL DISTRIBUTION WIDTH 13.9 % (11.0-15.5); WHITE BLOOD COUNT (AUTO) 16.8 K/uL (4.8-10.8)
[2023-08-15 05:08] LABS: CREATININE 0.5 mg/dL (0.5-1.3); POTASSIUM 3.2 mmol/L (3.5-5.1)
[2023-08-15] MEDS: POTASSIUM CHLORIDE 10% ELIXIR 20 MEQ/15 ML UDCUP PO PRN (06:17)
[2023-08-15 11:24] LABS: % IRON SATURATION 11.3 % (30-44)
[2023-08-15] MEDS: METOCLOPRAMIDE 10 MG/2 ML VIAL IVP SCH (11:58)
[2023-08-15] MEDS: BISACODYL 10 MG SUPP.RECT RC PRN (11:58)
[2023-08-15] MEDS: ALPRAZOLAM 0.25 MG TABLET PO PRN (12:12)
[2023-08-15] MEDS: IRON SUCROSE COMPLEX 100 MG/5 ML VIAL IV ONE (14:12)
[2023-08-15] MEDS: TRAMADOL HCL 50 MG TABLET PO PRN (14:49)
[2023-08-15] MEDS ORDERED: TRAMADOL HCL 50 MG TABLET PO PRN (15:00)
[2023-08-15] MEDS: LIDOCAINE 4% ADH..PATCH TP SCH (17:22)
[2023-08-15] MEDS: LOSARTAN 25 MG TABLET PO SCH (17:22)
[2023-08-15] MEDS: METHOCARBAMOL 500 MG TABLET PO SCH (17:52)
[2023-08-15 19:17] LABS: INR 1.04 (0.85-1.15); PROTHROMBIN TIME 12.2 SEC (9.6-11.6)
[2023-08-15 19:18] LABS: PARTIAL THROMBOPLASTIN TIME 25.6 SEC (26.3-35.5)
[2023-08-16] VITALS (13 sets, daily range): BP systolic 90–153; BP diastolic 53–75; PULSE 65–137; RESP 18–22; O2SAT 96
[2023-08-16] MEDS: METOPROLOL TARTRATE 1 MG/ML 5ML VIAL IV PRN (02:41)
[2023-08-16] MEDS: METOPROLOL TARTRATE 25 MG TAB PO SCH (10:45)
[2023-08-16] MEDS ORDERED: POTASSIUM CHLORIDE 20MEQ/100ML 100 ML IV PRN (12:00)
[2023-08-16] MEDS ORDERED: POTASSIUM CHLORIDE 10% ELIXIR 20 MEQ/15 ML UDCUP PO PRN (12:00)
[2023-08-16] MEDS: KCL 20 MEQ ERTAB PO PRN (13:00)
[2023-08-16] MEDS: ALPRAZOLAM 0.25 MG TABLET PO PRN (21:16)
[2023-08-17] VITALS (9 sets, daily range): BP systolic 118–144; BP diastolic 66–75; PULSE 66–86; RESP 16–24; O2SAT 96–97
[2023-08-17 03:37] LABS: BASOPHILS # (AUTO) 0.02 K/uL (0.00-0.20); BASOPHILS % (AUTO) 0.1 % (0.0-5.0); EOSINOPHILS % (AUTO) 2.4 % (0.0-8.0); HEMATOCRIT 25.7 % (42-54); IMMATURE GRANULOCYTE ABSOLUTE 0.21 K/uL (0-1); LYMPHOCYTES # (AUTO) 1.7 K/uL (1.0-4.8); LYMPHOCYTES % (AUTO) 10.2 % (21.0-51.0); MEAN CORPUSCULAR HEMOGLOBIN 30.3 pg (27.0-33.0); MEAN CORPUSCULAR HGB CONC 32.3 g/dL (32.0-36.0); MEAN CORPUSCULAR VOLUME 93.8 fL (79-99); MONOCYTES # (AUTO) 1.5 K/uL (0.1-1.0); MONOCYTES % (AUTO) 8.8 % (3.0-13.0); NEUTROPHILS # (AUTO) 13.1 K/uL (1.8-7.7); NEUTROPHILS % (AUTO) 77.3 % (40.0-77.0); NUCLEATED RED BLOOD CELLS 0.1 % (0.0-0.19); PLATELET COUNT (AUTO) 403 K/uL (130-400); RED BLOOD CELL COUNT(AUTO) 2.74 MIL/uL (4.50-6.20); RED CELL DISTRIBUTION WIDTH 14.1 % (11.0-15.5)
[2023-08-17 04:17] LABS: ALBUMIN 2.1 g/dL (3.5-5.0); BILIRUBIN,TOTAL 0.8 mg/dL (0.2-1.0); CREATININE 0.7 mg/dL (0.5-1.3); MAGNESIUM 2.1 mg/dL (1.80-2.40); POTASSIUM 4.1 mmol/L (3.5-5.1); THYROID STIMULATING HORMONE 7.65 uIU/mL (0.36-3.74); TOTAL PROTEIN, SERUM 6.1 g/dL (6.0-8.3)
[2023-08-17] MEDS ORDERED: IPRATROPIUM 0.5 MG/2.5 ML INH IH PRN (11:30)
[2023-08-18] MEDS ORDERED: SERTRALINE HCL 50 MG TABLET PO SCH (09:00)
== END 2023-08-17 18:00 | DRG 231 ==
LOC: DAH 08:50 → DAHIP 08:51 → DAH 08:51 → 2DH 16:58 → 2CV 08-09 11:33 → 2CH 08-09 14:04 → 2DH 08-15 18:35
PROVIDERS: ADMIT Internal Medicine Pulmonary Disease; ATTEND Internal Medicine Pulmonary Disease
PROC: 4A023N7 Measurement of Cardiac Sampling and Pressure, Left Heart, Percutaneous Approach (ICD-10-PCS; principal; 2023-08-07)
PROC: B2111ZZ Fluoroscopy of Multiple Coronary Arteries using Low Osmolar Contrast (ICD-10-PCS; 2023-08-07)
PROC: B241ZZ3 Ultrasonography of Multiple Coronary Arteries, Intravascular (ICD-10-PCS; 2023-08-07)
PROC: 02100Z9 Bypass Coronary Artery, One Artery from Left Internal Mammary, Open Approach (ICD-10-PCS; 2023-08-09)
PROC: 4A023N7 Measurement of Cardiac Sampling and Pressure, Left Heart, Percutaneous Approach (ICD-10-PCS; 2023-08-09)
PROC: B2111ZZ Fluoroscopy of Multiple Coronary Arteries using Low Osmolar Contrast (ICD-10-PCS; 2023-08-09)
PROC: 0BH17EZ Insertion of Endotracheal Airway into Trachea, Via Natural or Artificial Opening (ICD-10-PCS; 2023-08-09)
PROC: 5A1935Z Respiratory Ventilation, Less than 24 Consecutive Hours (ICD-10-PCS; 2023-08-09)
PROC: 021009W Bypass Coronary Artery, One Artery from Aorta with Autologous Venous Tissue, Open Approach (ICD-10-PCS; 2023-08-09 12:02)
PROC: 027035Z Dilation of Coronary Artery, One Artery with Two Drug-eluting Intraluminal Devices, Percutaneous Approach (ICD-10-PCS; 2023-08-09 12:02)
PROC: 30233N1 Transfusion of Nonautologous Red Blood Cells into Peripheral Vein, Percutaneous Approach (ICD-10-PCS; 2023-08-11)
PROC: 5A09357 Assistance with Respiratory Ventilation, Less than 24 Consecutive Hours, Continuous Positive Airway Pressure (ICD-10-PCS; 2023-08-12)
PROC: 5A09357 Assistance with Respiratory Ventilation, Less than 24 Consecutive Hours, Continuous Positive Airway Pressure (ICD-10-PCS; 2023-08-13)
PROC: 027035Z Dilation of Coronary Artery, One Artery with Two Drug-eluting Intraluminal Devices, Percutaneous Approach (ICD-10-PCS; 2023-08-14)
PROC: 4A023N7 Measurement of Cardiac Sampling and Pressure, Left Heart, Percutaneous Approach (ICD-10-PCS; 2023-08-14)
PROC: B2111ZZ Fluoroscopy of Multiple Coronary Arteries using Low Osmolar Contrast (ICD-10-PCS; 2023-08-14)
PROC: B2121ZZ Fluoroscopy of Single Coronary Artery Bypass Graft using Low Osmolar Contrast (ICD-10-PCS; 2023-08-14)
PROC: B2181ZZ Fluoroscopy of Left Internal Mammary Bypass Graft using Low Osmolar Contrast (ICD-10-PCS; 2023-08-14)
PROC: B41F1ZZ Fluoroscopy of Right Lower Extremity Arteries using Low Osmolar Contrast (ICD-10-PCS; 2023-08-14)
PROC: B44FZZZ Ultrasonography of Right Lower Extremity Arteries (ICD-10-PCS; 2023-08-14)
PROC: 05HY33Z Insertion of Infusion Device into Upper Vein, Percutaneous Approach (ICD-10-PCS; 2023-08-15)
DX: I21.4 Non-ST elevation (NSTEMI) myocardial infarction (principal); J96.01 Acute respiratory failure with hypoxia; D62 Acute posthemorrhagic anemia; D68.59 Other primary thrombophilia; E87.20 Acidosis, unspecified; I31.39 Other pericardial effusion (noninflammatory); I47.20 Ventricular tachycardia, unspecified; I25.10 Atherosclerotic heart disease of native coronary artery without angina pectoris; E11.65 Type 2 diabetes mellitus with hyperglycemia; D72.829 Elevated white blood cell count, unspecified; E66.9 Obesity, unspecified; I50.9 Heart failure, unspecified; J95.1 Acute pulmonary insufficiency following thoracic surgery; I11.0 Hypertensive heart disease with heart failure; I65.22 Occlusion and stenosis of left carotid artery; E78.2 Mixed hyperlipidemia; I25.2 Old myocardial infarction; I48.0 Paroxysmal atrial fibrillation; J44.9 Chronic obstructive pulmonary disease, unspecified; Z79.02 Long term (current) use of antithrombotics/antiplatelets; Z68.32 Body mass index [BMI] 32.0-32.9, adult; Z79.82 Long term (current) use of aspirin; Z79.899 Other long term (current) drug therapy; Z86.14 Personal history of Methicillin resistant Staphylococcus aureus infection; Z87.891 Personal history of nicotine dependence; Z95.1 Presence of aortocoronary bypass graft; Z95.5 Presence of coronary angioplasty implant and graft
CPT/HCPCS: 36415; 36430; 36556; 36600; 71045; 80048; 80053; 80061; 80076; 80305; 81001; 81241; 82330; 82435; 82803; 82947; 82948; 83036; 83540; 83550; 83605; 83735; 83880; 84100; 84132; 84295; 84439; 84443; 84481; 84484; 85014; 85018; 85025; 85027; 85302; 85347; 85378; 85384; 85610; 85730; 85732; 86038; 86148; 86215; 86235; 86850; 86900; 86901; 86923; 87641; 92978; 92979; 93005; 93306; 93455; 93458; 93880; 94002; 94003; 94010; 94150; 94640; 94660; 94664; 94760; 96360; 96361; 99156; 99157; A4606; A7048; C1760; C1769; C1887; C1894; C9600; C9604; C9606; G0378; J0282; J0360; J0461; J0612; J0690; J1265; J1644; J1650; J1756; J1815; J1940; J2001; J2250; J2270; J2370; J2405; J2440; J2704; J2765; J3010; J3475; J3480; J3490; J7030; J7040; J7060; J7608; P9016; P9045; Q9967; A4213; A4215; A4216; A4221; A4222; A4223; A4315; A4452; A4600; A4649; A4663; A4930; A5120; A6204; A6219; C1713; C1725; C1750; C1753; C1776; C1874; G0168; Q9965

== ENCOUNTER → 2023-10-04 | Outpatient (CLI) | payer BC ==
[2023-10-04 12:41] LABS: CHOLESTEROL 163 mg/dL (<200); HDL CHOLESTEROL 44 mg/dL (29-71); LDL DIRECT 81 mg/dL (0-99); TRIGLYCERIDES 268 mg/dL (30-200)
[2023-10-04 13:06] LABS: HEMOGLOBIN A1C 7.7 % (4.0-6.0)
== END | disposition home or self-care (01) ==
LOC: LAB 08:15
PROVIDERS: ATTEND Student in an Organized Health Care Education/Training Program
DX: I10 Essential (primary) hypertension (principal); E78.5 Hyperlipidemia, unspecified; E03.9 Hypothyroidism, unspecified
CPT/HCPCS: 36415; 80061; 83036

== ENCOUNTER 2023-10-08 14:35 | Observation (INO) | payer BC ==
[~2023-10-08] VITALS: Ht 177.8 cm; Wt 95.3 kg
[2023-10-08] MEDS ORDERED: IOHEXOL-350 75 ML VIAL IV ONE (14:55)
[2023-10-08] MEDS ORDERED: LIDOCAINE HCL 400MG/20ML VIAL ONE (14:55)
[2023-10-08] MEDS ORDERED: BIVALIRUDIN 250 MG/VIAL IV ONE (14:55)
[2023-10-08] MEDS ORDERED: SODIUM BICARB 50MEQ 50ML VIAL 0 ML ONE (14:55)
[2023-10-08] MEDS ORDERED: HEPARIN 10,000 UNIT/10ML (1,000 UNIT/ML) VIAL ONE (14:56)
[2023-10-08] MEDS ORDERED: NITROGLYCERIN 50MG VIAL ONE (14:56)
[2023-10-08] MEDS ORDERED: DOPAMINE HCL 400 MG/D5%-WATER 0 ML IV ONE (15:00)
[2023-10-08] MEDS ORDERED: ATROPINE 1MG SYG IVP ONE (15:00)
[2023-10-08 15:02] LABS: BASOPHILS # (AUTO) 0.05 K/uL (0.00-0.20); BASOPHILS % (AUTO) 0.4 % (0.0-5.0); EOSINOPHILS # (AUTO) 0.24 K/uL (0.00-0.70); EOSINOPHILS % (AUTO) 1.9 % (0.0-8.0); HEMATOCRIT 35.5 % (42-54); IMMATURE GRANULOCYTE ABSOLUTE 0.04 K/uL (0-1); LYMPHOCYTES # (AUTO) 1.8 K/uL (1.0-4.8); LYMPHOCYTES % (AUTO) 14.7 % (21.0-51.0); MEAN CORPUSCULAR HGB CONC 33.8 g/dL (32.0-36.0); MEAN CORPUSCULAR VOLUME 88.8 fL (79-99); MONOCYTES # (AUTO) 1.1 K/uL (0.1-1.0); MONOCYTES % (AUTO) 8.5 % (3.0-13.0); NEUTROPHILS # (AUTO) 9.2 K/uL (1.8-7.7); NEUTROPHILS % (AUTO) 74.2 % (40.0-77.0); PLATELET COUNT (AUTO) 368 K/uL (130-400); RED CELL DISTRIBUTION WIDTH 13.7 % (11.0-15.5); WHITE BLOOD COUNT (AUTO) 12.4 K/uL (4.8-10.8)
[2023-10-08 15:18] LABS: CREATININE 1.2 mg/dL (0.5-1.3); POTASSIUM 4.1 mmol/L (3.5-5.1)
[2023-10-08 15:21] LABS: INR 1.02 (0.85-1.15)
[2023-10-08 15:23] LABS: PARTIAL THROMBOPLASTIN TIME 28.8 SEC (26.3-35.5)
[2023-10-08 15:27] LABS: ALBUMIN 3.5 g/dL (3.5-5.0); BILIRUBIN,TOTAL 0.2 mg/dL (0.2-1.0); TOTAL PROTEIN, SERUM 7.5 g/dL (6.0-8.3)
[2023-10-08] MEDS: KETOROLAC 15MG/ML VIAL (15MG/ML) ONE (15:39)
[2023-10-08] MEDS: KETOROLAC 15MG/ML VIAL (15MG/ML) IV ONE (15:39)
[2023-10-08] MEDS: KETOROLAC 15MG/ML VIAL (15MG/ML) IM STA (16:23)
[2023-10-08] MEDS ORDERED: LIDOCAINE HCL 2% VISCOUS 30 ML, MAG/ALUM/SIMETH 30ML 30 ML, DICYCLOMINE HCL 20 MG PO PRN (16:30)
[2023-10-08] MEDS ORDERED: ARTIFICAL TEARS SOL 15 ML OP PRN (16:30)
[2023-10-08] MEDS ORDERED: GUAIFENESIN-DM 200/20 MG 10 ML PO PRN (16:30)
[2023-10-08] MEDS ORDERED: NITROGLYCERIN 0.4 MG SL TAB SL PRN (16:30)
[2023-10-08] MEDS ORDERED: ACETAMINOPHEN 325 MG TAB PO PRN ×2 (16:30)
[2023-10-08] MEDS ORDERED: ZOLPIDEM TARTRATE 5 MG TAB PO PRN (16:30)
[2023-10-08] MEDS ORDERED: DIPHENHYDRAMINE HCL 25 MG CAPSULE PO PRN (16:30)
[2023-10-08] MEDS ORDERED: BENZOCAINE/MENTH/CETYLPYRD CL 1 EACH LOZENGE MM PRN (16:30)
[2023-10-08] MEDS ORDERED: MAG/ALUM/SIMETH 30 ML UDCUP PO PRN (16:30)
[2023-10-08] MEDS ORDERED: DOCUSATE SODIUM 100 MG CAP PO PRN (16:30)
[2023-10-08] MEDS ORDERED: DiphenhydrAMINE HCL 50 MG/ML VIAL IV PRN (16:30)
[2023-10-08] MEDS ORDERED: ACETAMINOPHEN 500 MG TABLET PO PRN (16:30)
[2023-10-08] MEDS ORDERED: POLYETHYLENE GLYCOL 3350 17 GM POWD.PACK PO PRN (16:30)
[2023-10-08] MEDS ORDERED: GUAIFENESIN SUGAR-FREE 100 MG/5 ML UDCUP PO PRN (16:30)
[2023-10-08] MEDS ORDERED: ONDANSETRON 4MG INJ IV PRN (16:30)
[2023-10-08] MEDS ORDERED: LACTULOSE 20 GM/30 ML UDCUP PO PRN (16:30)
[2023-10-08] MEDS ORDERED: LOPERAMIDE HCL 2 MG CAP PO PRN (16:30)
[2023-10-08 16:39] LABS: ADD UA MICROSCOPIC YES; APPEARANCE,URINE CLEAR (CLEAR); BILIRUBIN,URINE NEGATIVE (NEGATIVE); COLOR,URINE COLORLESS (YELLOW); GLUCOSE, URINE (UA) >=1000 mg/dL (NEGATIVE); KETONES,URINE NEGATIVE (NEGATIVE); LEUKOCYTE ESTERASE ,URINE NEGATIVE Leu/uL (NEGATIVE); NITRATE,URINE NEGATIVE (NEGATIVE); OCCULT BLOOD,URINE NEGATIVE (NEGATIVE); PH,URINE 6.5 (5.0-8.0); PROTEIN,URINE NEGATIVE (NEGATIVE); UROBILINOGEN,URINE 0.2 mg/dL (0.2-1.0)
[2023-10-08 16:41] LABS: RBC,URINE 0-1 /HPF (0-1); WBC,URINE 0-1 /HPF (0-1)
[2023-10-08] MEDS: IBUPROFEN 200 MG TAB PO PRN (18:05)
[2023-10-08] MEDS: ALPRAZOLAM 0.5 MG TABLET PO PRN (18:08)
[2023-10-08] MEDS ORDERED: FAMOTIDINE 20MG VIAL IV PRN (21:00)
[2023-10-08] MEDS: FAMOTIDINE 20MG TAB PO SCH (21:03)
[2023-10-08] MEDS: AZITHROMYCIN 250 MG TABLET PO SCH (21:54)
[2023-10-08] MEDS: CEFTRIAXONE 2GM VIAL IVPB SCH (21:54)
[2023-10-08 23:49] LABS: INFLUENZA TYPE A Negative For Type A (NEGATIVE); INFLUENZA TYPE B Negative For Type B (NEGATIVE)
[2023-10-09 00:01] VITALS: O2SAT 99
[2023-10-09 00:23] VITALS: BP 137/84; PULSE 58; RESP 20
[2023-10-09 04:00] VITALS: BP 138/82; PULSE 69; RESP 20
[2023-10-09 05:10] LABS: BASOPHILS # (AUTO) 0.04 K/uL (0.00-0.20); BASOPHILS % (AUTO) 0.5 % (0.0-5.0); EOSINOPHILS # (AUTO) 0.25 K/uL (0.00-0.70); EOSINOPHILS % (AUTO) 2.9 % (0.0-8.0); HEMATOCRIT 35.5 % (42-54); IMMATURE GRANULOCYTE ABSOLUTE 0.03 K/uL (0-1); LYMPHOCYTES # (AUTO) 1.5 K/uL (1.0-4.8); LYMPHOCYTES % (AUTO) 17.7 % (21.0-51.0); MEAN CORPUSCULAR HEMOGLOBIN 29.7 pg (27.0-33.0); MEAN CORPUSCULAR HGB CONC 31.8 g/dL (32.0-36.0); MEAN CORPUSCULAR VOLUME 93.2 fL (79-99); MONOCYTES # (AUTO) 0.9 K/uL (0.1-1.0); MONOCYTES % (AUTO) 10.4 % (3.0-13.0); NEUTROPHILS # (AUTO) 5.8 K/uL (1.8-7.7); NEUTROPHILS % (AUTO) 68.1 % (40.0-77.0); PLATELET COUNT (AUTO) 293 K/uL (130-400); RED BLOOD CELL COUNT(AUTO) 3.81 MIL/uL (4.50-6.20); RED CELL DISTRIBUTION WIDTH 13.8 % (11.0-15.5); WHITE BLOOD COUNT (AUTO) 8.5 K/uL (4.8-10.8)
[2023-10-09 05:18] LABS: CREATININE 0.9 mg/dL (0.5-1.3); POTASSIUM 3.9 mmol/L (3.5-5.1)
[2023-10-09 08:00] VITALS: BP 120/68; PULSE 69; RESP 18
[2023-10-09] MEDS: DOXYCYCLINE HYCLATE 100 MG TABLET PO SCH (08:32)
[2023-10-09] MEDS ORDERED: FURO20TA4 PO (11:39)
[2023-10-09] MEDS ORDERED: CLOP75TA32 PO (11:39)
[2023-10-09] MEDS ORDERED: EMPA10TA PO (11:39)
[2023-10-09] MEDS ORDERED: LOSA50TA64 PO (11:39)
[2023-10-09] MEDS ORDERED: PANT40TA55 PO (11:39)
[2023-10-09] MEDS ORDERED: APIX5TAB PO (11:39)
[2023-10-09] MEDS ORDERED: METO-408 PO (11:40)
[2023-10-09] MEDS ORDERED: PANT40TA54 PO (11:45)
[2023-10-09] MEDS ORDERED: AMLO-258 PO (11:45)
[2023-10-09] MEDS ORDERED: SERT-439 PO (11:45)
[2023-10-09] MEDS ORDERED: AMIO200T68 PO (11:45)
[2023-10-09] MEDS ORDERED: LOSA25TA41 PO (11:45)
[2023-10-09 12:00] VITALS: BP 126/68; PULSE 57; RESP 18
== END 2023-10-09 16:00 | disposition home or self-care (01) ==
LOC: EDH 14:35 → EDHIP 16:26 → 4CH 10-09 00:23
PROVIDERS: ADMIT Internal Medicine; ATTEND Internal Medicine
DX: I25.110 Atherosclerotic heart disease of native coronary artery with unstable angina pectoris (principal); Z20.822 Contact with and (suspected) exposure to COVID-19; D72.829 Elevated white blood cell count, unspecified; E11.65 Type 2 diabetes mellitus with hyperglycemia; I11.0 Hypertensive heart disease with heart failure; I50.9 Heart failure, unspecified; I48.0 Paroxysmal atrial fibrillation; I31.9 Disease of pericardium, unspecified; E78.5 Hyperlipidemia, unspecified; F39 Unspecified mood [affective] disorder; K21.9 Gastro-esophageal reflux disease without esophagitis; E03.9 Hypothyroidism, unspecified; E78.00 Pure hypercholesterolemia, unspecified; I25.2 Old myocardial infarction; Z79.01 Long term (current) use of anticoagulants; Z95.1 Presence of aortocoronary bypass graft; Z95.5 Presence of coronary angioplasty implant and graft; Z79.899 Other long term (current) drug therapy
CPT/HCPCS: 96374; 96375; 84484 ×5; 80053; 85025 ×2; 85610; 85730; 87804 ×2; 87449; 87426; 81001; 36415 ×2; 71045; 99291; 93005; 80048; 86738 ×2; 86632; G0378 ×24; J3490 ×2; J0696; J1644; J1885; J0461; J0583; J1265; Q9967

== ENCOUNTER 2024-06-30 08:02 | Day surgery (SDC) | payer BC ==
[2024-06-29 10:45] VITALS: BP 159/91; PULSE 61; RESP 18; TEMP 97.2
[2024-06-29 10:45] LABS: BASOPHILS # (AUTO) 0.05 K/uL (0.00-0.20); BASOPHILS % (AUTO) 0.5 % (0.0-5.0); EOSINOPHILS # (AUTO) 0.33 K/uL (0.00-0.70); EOSINOPHILS % (AUTO) 3.3 % (0.0-8.0); HEMATOCRIT 48.4 % (42-54); IMMATURE GRANULOCYTE ABSOLUTE 0.03 K/uL (0-1); LYMPHOCYTES # (AUTO) 1.2 K/uL (1.0-4.8); LYMPHOCYTES % (AUTO) 12.2 % (21.0-51.0); MEAN CORPUSCULAR HEMOGLOBIN 30.2 pg (27.0-33.0); MEAN CORPUSCULAR HGB CONC 32.9 g/dL (32.0-36.0); MONOCYTES # (AUTO) 0.9 K/uL (0.1-1.0); MONOCYTES % (AUTO) 8.5 % (3.0-13.0); NEUTROPHILS # (AUTO) 7.5 K/uL (1.8-7.7); NEUTROPHILS % (AUTO) 75.2 % (40.0-77.0); PLATELET COUNT (AUTO) 302 K/uL (130-400); RED BLOOD CELL COUNT(AUTO) 5.26 MIL/uL (4.50-6.20); RED CELL DISTRIBUTION WIDTH 12.9 % (11.0-15.5)
--- NOTE | 2024-06-29 10:56 | EKG ---
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
[2024-06-29 10:57] LABS: INR 1.03 (0.85-1.15); PROTHROMBIN TIME 10.9 SEC (9.6-11.6)
[2024-06-29 10:58] LABS: PARTIAL THROMBOPLASTIN TIME 28.6 SEC (26.3-35.5)
[2024-06-29 10:59] LABS: APPEARANCE,URINE CLEAR (CLEAR); BILIRUBIN,URINE NEGATIVE (NEGATIVE); COLOR,URINE LIGHT-YELLOW (YELLOW); GLUCOSE, URINE (UA) >=1000 mg/dL (NEGATIVE); KETONES,URINE NEGATIVE (NEGATIVE); LEUKOCYTE ESTERASE ,URINE NEGATIVE Leu/uL (NEGATIVE); NITRATE,URINE NEGATIVE (NEGATIVE); OCCULT BLOOD,URINE NEGATIVE (NEGATIVE); PROTEIN,URINE NEGATIVE (NEGATIVE); UROBILINOGEN,URINE 0.2 mg/dL (0.2-1.0)
[2024-06-29 11:02] LABS: ADD UA MICROSCOPIC YES
[2024-06-29 11:13] LABS: CREATININE 0.8 mg/dL (0.5-1.3); POTASSIUM 5.2 mmol/L (3.5-5.1)
[2024-06-29 11:16] LABS: B-TYPE NATRIURETIC PEPTIDE 111 pg/mL (0-100)
--- NOTE | 2024-06-29 11:18 | HMCIMG ---
CHEST 1VW HISTORY: Preop COMPARISON: 10/08/2023 FINDINGS: A frontal projection of the chest was obtained. Mild bilateral pulmonary infiltrates are seen may be related to mild pulmonary vascular congestion with possible superimposed pneumonitis. Poststernotomy changes are seen. The heart is enlarged. Degenerative changes of the thoracolumbar spine are present. Mild aortic calcifications are seen. Degenerative changes are seen. IMPRESSION: 1. Bilateral pulmonary infiltrates are seen suggestive of pulmonary vascular congestion with possible superimposed pneumonitis.
[2024-06-29 11:19] LABS: WBC,URINE 0-1 /HPF (0-1)
--- NOTE | 2024-06-29 16:25 | NUR ---
RE: LABS/CXR REPORTED BMP AND CXR RESULTS TO DR Opal PEREZ, NO NEW ORDERS RECEIVED.
[~2024-06-30] VITALS: Ht 177.8 cm; Wt 104.1 kg
[2024-06-30] VITALS (10 sets, daily range): BP systolic 97–149; BP diastolic 58–85; PULSE 51–73; RESP 14–18; TEMP 97.2–97.8
[~2024-06-30 08:02] MED LIST changes: +APIX5TAB PO; -ASPI-556 PO; +CLOP75TA32 PO; -DULA0.75 SQ; +EMPA10TA PO; -INSU100I24 SQ; +INSU100V37 SQ; -LISI20TA24 PO; +LOSA25TA41 PO; -METF-446 PO; +SERT-439 PO; +TIRZ7.5P SQ
[2024-06-30] MEDS ORDERED: IOHEXOL 350 MG/ML 100ML INFUS..BTL IV ONE ×2 (11:25→13:25)
[2024-06-30] MEDS ORDERED: HEParin-NS 1,000 UNIT/500 ML 1,000 ML IV ONE (11:25)
[2024-06-30] MEDS ORDERED: LIDOCAINE HCL 400MG/20ML VIAL ONE (11:25)
[2024-06-30] MEDS ORDERED: NITROGLYCERIN 50MG VIAL ONE (11:25)
[2024-06-30] MEDS ORDERED: HEParin 10,000 UNIT/10ML (1,000 UNIT/ML) VIAL ONE ×2 (11:25→12:47)
[2024-06-30] MEDS ORDERED: VERAPAMIL HCL 2.5 MG/ML VIAL ONE (11:29)
[2024-06-30] MEDS ORDERED: MIDAZOLAM HCL 1 MG/ML 2ML VIAL ONE ×4 (11:34→13:16)
[2024-06-30] MEDS ORDERED: FENTanyl CITRate PF 50 MCG/1 ML 2ML VIAL ONE ×3 (11:34→13:15)
[2024-06-30] MEDS ORDERED: ASPIRIN 81MG CHEW TAB ONE (12:49)
[2024-06-30] MEDS ORDERED: HEParin-NS 1,000 UNIT/500 ML 500 ML IV ONE (12:52)
[2024-06-30] MEDS ORDERED: niCARDIpine 25MG INJ IV ONE (13:50)
--- NOTE | 2024-06-30 14:26 | PRN ---
PROCEDURE REPORT DATE OF PROCEDURE: Jun 30, 2024 SENIOR PRODUCT MANAGER: [ Vero hayden MD] PROCEDURE PERFORMED: Conscious sedation Ultrasound guided right radial artery access Selective left coronary artery angiogram Selective right coronary artery angiogram Left heart catheterization SVG to OM angiogram IVUS of the LAD and left main Status post successful IVUS guided PTCA/PCI of the distal (2.5 x 12 mm milo Clear IRINA) and prox to mid (3.5 x 15 mm milo Clear IRINA) of the LAD TR band 13 reynaldo over right radial artery INDICATION: Angina DESCRIPTION OF PROCEDURE: After informed consent was obtained, the patient was prepped and draped in the usual sterile fashion. A 6 Belgian arterial sheath was inserted in the right radial artery using ultrasound guidance with first pass wall puncture. The arterial sheath was aspirated and flushed. A 6 Belgian JL 3.5 was then advanced to the ascending aorta over an exchange length J-tip guidewire, was aspirated and flushed, and was used for selective coronary angiograms in multiple obliquities. A JR-4 was advanced in a similar fashion to the ascending aorta over the J-tipped guidewire and was used for selective right coronary angiograms in multiple oblique views with findings as outlined below. The JR-4 catheter advanced into the LV and pressures were obtained with a pull-back across the aortic valve. A TR band was placed over right radial artery. FLUOROSCOPY TIME: 3.2 min LEFT HEART HEMODYNAMICS: LVEDP 15 mm Hg and no gradient Ao CORONARY ANGIOGRAM: LEFT MAIN: Patent stents. Gives rise to LCx and LAD. LEFT ANTERIOR DESCENDING: Large vessel giving rise to two Diagonal branches. T patent proximal stents, prox to mid stent is undersized by IVUS followed by 70 80% stenosis of the mid segment and 80% stenosis of the distal LAD. LEFT CIRCUMFLEX: Large, dominant and gives rise to two OM branches. 90-95% ostial stenosis and 40-50% mid stenosis. OM2 is large with competitive flow via patent SVG to OM graft RIGHT CORONARY ARTERY: Small, nondominant vessel with luminal irregularities GRAFT ANATOMY: MARSH-LAD not studied as it was known to be occluded from prior angiogram SVG to OM has a patent proximal stent followed by luminal irregularities HEMOSTASIS: TR band 12 reynaldo over right radial artery INTERVENTIONS: Status post successful IVUS guided PTCA/PCI of the distal (2.5 x 12 mm milo Clear IRINA) and prox to mid (3.5 x 15 mm milo Clear IRINA) of the LAD COMPLICATIONS: None FINDINGS: Normal coronary anatomy and severe LAD stenosis status post successful revascularization x2 ESTIMATED BLOOD LOSS: 5 cc RECOMMENDATIONS/INSTRUCTIONS: Aggressive risk factor modification. Patient will continue on dual therapy with Eliquis b.i.d. and Plavix 75 mg q.day in addition to high-intensity statin therapy and beta-brittni Radial precautions and follow up in cardiology clinic 1-2 weeks post discharge CONTRAST DELIVERED TO PATIENT (mL): 250cc VERO Degroot MD, MD Jun 30, 2024 14:26
[2024-06-30] MEDS ORDERED: DEXTROSE 50%-WATER 50 ML DISP.SYRIN IV PRN (14:30)
[2024-06-30] MEDS ORDERED: GLUCAGON 1MG KIT 1 MG ML IM PRN (14:30)
[2024-06-30] MEDS ORDERED: 0.9%NACL 1000ML 1,000 ML IV SCH (14:30)
[2024-07-01] MEDS ORDERED: cloPIDOgrel 75MG TAB PO SCH (09:00)
== END 2024-06-30 18:20 | disposition home or self-care (01) ==
LOC: DAH 08:02
PROVIDERS: ATTEND Student in an Organized Health Care Education/Training Program
DX: I25.118 Atherosclerotic heart disease of native coronary artery with other forms of angina pectoris (principal); I25.708 Atherosclerosis of coronary artery bypass graft(s), unspecified, with other forms of angina pectoris; E78.5 Hyperlipidemia, unspecified; E11.65 Type 2 diabetes mellitus with hyperglycemia; I48.0 Paroxysmal atrial fibrillation; I11.9 Hypertensive heart disease without heart failure; E03.9 Hypothyroidism, unspecified; Z95.5 Presence of coronary angioplasty implant and graft; Z79.01 Long term (current) use of anticoagulants; Z79.899 Other long term (current) drug therapy
CPT/HCPCS: 80048; 83880; 85025; 85610; 85730; 81001; 36415; 71045; 93005; 92978; 92979; 85347; 82948; 93459; C9600; C1769 ×3; C1725 ×3; C1874 ×2; C1887 ×3; C1894; A4649; C1753; J3010 ×2; J3490 ×4; J1644 ×4; J2250 ×3; Q9967 ×2; A4215; A4222; A4221; A4663; A4216; A4606; Q9965 ×2; A4223 ×3; 96360; 96361; 99156; 99157